=== PATIENT | male | born 1990 | race Caucasian/White ===

== ENCOUNTER 2017-07-16 13:28 | Emergency (ER) | payer OTHER ==
[~2017-07-16] VITALS: Ht 172.7 cm; Wt 75.9 kg
[2017-07-16 13:28] VITALS: BP 156/93
[2017-07-16 16:44] LABS: BASO # 0.1 10^3/uL (0.0-0.2); BASO % 0.8 % (0.0-1.0); EOS # 0.1 10^3/uL (0.0-0.50); EOS % 0.8 % (0.0-3.0); IMMATURE GRANULOCYTE % 0.2 % (0-0); LYMPH # 1.3 10^3/uL (1.5-6.5); MEAN CORPUSCULAR HEMOGLOBIN 32.3 pg (27.0-33.0); MEAN CORPUSCULAR HGB CONC 35.5 g/dl (32.0-36.5); MEAN CORPUSCULAR VOLUME 91.1 fl (80.0-96.0); MONO # 0.6 10^3/uL (0.0-0.8); MONO % 4.2 % (0.0-5.0); NEUTROPHILS # 11.1 10^3/uL (1.8-7.7); PLATELET COUNT, AUTOMATED 219 10^3/uL (150-450); RED CELL DISTRIBUTION WIDTH 13.6 % (11.5-14.5); WHITE BLOOD COUNT 13.2 10^3/uL (4.0-10.0)
[2017-07-16 16:46] LABS: ADD MORPHOLOGY? NO
[2017-07-16 17:16] LABS: METHADONE URINE NEGATIVE (NEGATIVE)
[2017-07-16 17:20] LABS: ALBUMIN 4.7 GM/DL (3.2-5.2); ALBUMIN/GLOBULIN RATIO 1.68 (1.00-1.93); ALKALINE PHOSPHATASE 85 U/L (45-117); ALT/SGPT 38 U/L (12-78); ANION GAP 7 MEQ/L (8-16); AST/SGOT 27 U/L (15-37); BILIRUBIN,DIRECT 0.4 MG/DL (0.0-0.2); BILIRUBIN,TOTAL 1.6 MG/DL (0.2-1.0); BLOOD UREA NITROGEN 14 MG/DL (7-18); CALCIUM LEVEL 9.2 MG/DL (8.5-10.1); CARBON DIOXIDE LEVEL 28 MEQ/L (21-32); CHLORIDE LEVEL 103 MEQ/L (98-107); CREATININE FOR GFR 0.87 MG/DL (0.70-1.30); GLOMERULAR FILTRATION RATE > 60.0 (>60); GLUCOSE, FASTING 81 MG/DL (70-105); POTASSIUM SERUM 4.1 MEQ/L (3.5-5.1); SODIUM LEVEL 138 MEQ/L (136-145); TOTAL PROTEIN 7.5 GM/DL (6.4-8.2)
== END 2017-07-16 17:43 | disposition home or self-care (01) ==
LOC: M ED 13:28
DX: F10.10 Alcohol abuse, uncomplicated (principal)

== ENCOUNTER 2017-10-12 00:44 | Inpatient (IN) | payer OTHER ==
[2017-10-12 01:30] LABS: HEMATOCRIT 47.5 % (42.0-52.0); HEMOGLOBIN 17.3 g/dl (14.0-18.0); MEAN CORPUSCULAR HEMOGLOBIN 31.8 pg (27.0-33.0); MEAN CORPUSCULAR HGB CONC 36.4 g/dl (32.0-36.5); MEAN CORPUSCULAR VOLUME 87.3 fl (80.0-96.0); PLATELET COUNT, AUTOMATED 273 10^3/uL (150-450); RED BLOOD COUNT 5.44 10^6/uL (4.30-6.10); RED CELL DISTRIBUTION WIDTH 12.2 % (11.5-14.5); WHITE BLOOD COUNT 15.3 10^3/uL (4.0-10.0)
[2017-10-12 01:56] LABS: ALBUMIN 4.8 GM/DL (3.2-5.2); ALKALINE PHOSPHATASE 92 U/L (45-117); ALT/SGPT 30 U/L (12-78); AMPHETAMINES LEVEL URINE NEGATIVE (NEGATIVE); ANION GAP 20 MEQ/L (8-16); AST/SGOT 30 U/L (7-37); BARBITURATES URINE NEGATIVE (NEGATIVE); BENZODIAZEPINES URINE NEGATIVE (NEGATIVE); BILIRUBIN,DIRECT 0.4 MG/DL (0.0-0.2); BLOOD UREA NITROGEN 14 MG/DL (7-18); CALCIUM LEVEL 9.4 MG/DL (8.5-10.1); CANNABINOIDS URINE NEGATIVE (NEGATIVE); CARBON DIOXIDE LEVEL 20 MEQ/L (21-32); CHLORIDE LEVEL 104 MEQ/L (98-107); COCAINE METABOLITE URINE NEGATIVE (NEGATIVE); CPK CREATINE PHOSPHOKINASE 68 U/L (39-308); CREATININE FOR GFR 0.86 MG/DL (0.70-1.30); ETHYL ALCOHOL (ETHANOL) 0.342 % (0.000-0.010); GLOMERULAR FILTRATION RATE > 60.0 (>60); GLUCOSE, FASTING 65 MG/DL (70-105); METHADONE URINE NEGATIVE (NEGATIVE); OPIATES URINE NEGATIVE (NEGATIVE); PHENCYCLIDINE URINE NEGATIVE (NEGATIVE); POTASSIUM SERUM 3.8 MEQ/L (3.5-5.1); SALICYLATE LEVEL < 1.7 MG/DL (5.0-30.0); SODIUM LEVEL 144 MEQ/L (136-145)
[2017-10-12 01:57] LABS: ACETAMINOPHEN LEVEL < 2.0 UG/ML (10.0-30.0)
[2017-10-12] MEDS: NICOTINE 21MG/24HR 1 EA TRANSDERMAL TD (02:35)
[2017-10-12] MEDS: LORazepam 2 MG TAB PO (07:30)
[2017-10-12] MEDS: OXAZEPAM 15 MG CAP PO (13:50)
[2017-10-12] MEDS: THIAMINE 100 MG TAB PO (14:55)
[2017-10-12 14:56] LABS: ANION GAP 9 MEQ/L (8-16); BLOOD UREA NITROGEN 16 MG/DL (7-18); CALCIUM LEVEL 8.8 MG/DL (8.5-10.1); CARBON DIOXIDE LEVEL 28 MEQ/L (21-32); CHLORIDE LEVEL 103 MEQ/L (98-107); CREATININE FOR GFR 0.85 MG/DL (0.70-1.30); GLOMERULAR FILTRATION RATE > 60.0 (>60); GLUCOSE, FASTING 91 MG/DL (70-105); POTASSIUM SERUM 4.7 MEQ/L (3.5-5.1); SODIUM LEVEL 140 MEQ/L (136-145)
[2017-10-12] MEDS: PRENATAL VITAMINS CHEWABLE TABLET PO (15:17)
[2017-10-12] MEDS ORDERED: MAALOX 30 ML SUSP *UDC PO (15:30)
[2017-10-12] MEDS ORDERED: MOM 30ML SUSPENSION UDC PO (15:30)
[2017-10-12] MEDS ORDERED: ACETAMINOPHEN TAB 650MG DOSE (2X325MG) PO (15:30)
[2017-10-13] MEDS: traZODone 50 MG TAB PO (02:18)
[2017-10-13] MEDS: SERTRALINE HCL 50 MG TAB PO (09:00)
[2017-10-13] MEDS: PRENATAL VITAMINS CHEWABLE TABLET PO (09:41)
[2017-10-13] MEDS: NICOTINE 21MG/24HR 1 EA TRANSDERMAL TD (13:24)
[2017-10-13] MEDS: FOLIC ACID 1 MG TAB PO (17:29)
[2017-10-14] MEDS: traZODone 50 MG TAB PO ×2 (01:07→20:52)
[2017-10-14 07:49] LABS: BASO # 0.1 10^3/uL (0.0-0.2); BASO % 1.2 % (0.0-1.0); EOS # 0.2 10^3/uL (0.0-0.50); EOS % 3.3 % (0.0-3.0); HEMATOCRIT 41.9 % (42.0-52.0); HEMOGLOBIN 15.2 g/dl (14.0-18.0); IMMATURE GRANULOCYTE % 0.3 % (0-0); LYMPH # 1.8 10^3/uL (1.5-6.5); LYMPH % 27.1 % (24.0-44.0); MEAN CORPUSCULAR HEMOGLOBIN 31.6 pg (27.0-33.0); MEAN CORPUSCULAR HGB CONC 36.3 g/dl (32.0-36.5); MEAN CORPUSCULAR VOLUME 87.1 fl (80.0-96.0); MONO # 0.5 10^3/uL (0.0-0.8); NEUTROPHILS % 61.1 % (36.0-66.0); PLATELET COUNT, AUTOMATED 177 10^3/uL (150-450); RED BLOOD COUNT 4.81 10^6/uL (4.30-6.10); WHITE BLOOD COUNT 6.5 10^3/uL (4.0-10.0)
[2017-10-14] MEDS: NICOTINE 21MG/24HR 1 EA TRANSDERMAL TD (08:54)
[2017-10-14] MEDS: THIAMINE 100 MG TAB PO (08:54)
[2017-10-14] MEDS: MULTIVITAMINS/MINERALS THERAP 1 TAB PO (08:54)
[2017-10-14] MEDS: FOLIC ACID 1 MG TAB PO (08:54)
[2017-10-14] MEDS: SERTRALINE HCL 50 MG TAB PO (08:55)
[2017-10-14] MEDS ORDERED: SERTRALINE HCL 25 MG TABLET PO (09:00)
[2017-10-14] MEDS: LORazepam 2 MG TAB PO (13:28)
[2017-10-15] MEDS: hydrOXYzine 50 MG TAB PO (08:22)
[2017-10-15] MEDS: SERTRALINE HCL 50 MG TAB PO (08:23)
[2017-10-15] MEDS: THIAMINE 100 MG TAB PO (08:23)
[2017-10-15] MEDS: NICOTINE 21MG/24HR 1 EA TRANSDERMAL TD (08:23)
[2017-10-15] MEDS: FOLIC ACID 1 MG TAB PO (08:23)
[2017-10-15] MEDS: MULTIVITAMINS/MINERALS THERAP 1 TAB PO (08:23)
[2017-10-15] MEDS: LORazepam 1 MG TAB PO ×2 (11:29→17:11)
[2017-10-15] MEDS: NALTREXONE 50 MG TAB PO (11:29)
[2017-10-15] MEDS: traZODone 50 MG TAB PO (20:35)
[2017-10-16] MEDS: LORazepam 1 MG TAB PO ×2 (05:24)
[2017-10-16] MEDS: NALTREXONE 50 MG TAB PO (08:11)
[2017-10-16] MEDS: FOLIC ACID 1 MG TAB PO (08:11)
[2017-10-16] MEDS: NICOTINE 21MG/24HR 1 EA TRANSDERMAL TD (08:11)
[2017-10-16] MEDS: MULTIVITAMINS/MINERALS THERAP 1 TAB PO (08:11)
[2017-10-16] MEDS: THIAMINE 100 MG TAB PO (08:11)
[2017-10-16] MEDS: SERTRALINE HCL 50 MG TAB PO (08:11)
[2017-10-16] MEDS: traZODone 50 MG TAB PO (20:59)
[2017-10-17] MEDS: THIAMINE 100 MG TAB PO (08:13)
[2017-10-17] MEDS: MULTIVITAMINS/MINERALS THERAP 1 TAB PO (08:13)
[2017-10-17] MEDS: FOLIC ACID 1 MG TAB PO (08:13)
[2017-10-17] MEDS: NALTREXONE 50 MG TAB PO (08:13)
[2017-10-17] MEDS: NICOTINE 21MG/24HR 1 EA TRANSDERMAL TD (08:13)
[2017-10-17] MEDS: SERTRALINE HCL 50 MG TAB PO (08:13)
[2017-10-17] MEDS: traZODone 50 MG TAB PO (21:02)
[2017-10-18] MEDS: NALTREXONE 50 MG TAB PO (08:58)
[2017-10-18] MEDS: MULTIVITAMINS/MINERALS THERAP 1 TAB PO (08:58)
[2017-10-18] MEDS: SERTRALINE HCL 50 MG TAB PO (08:58)
[2017-10-18] MEDS: FOLIC ACID 1 MG TAB PO (08:58)
[2017-10-18] MEDS: NICOTINE 21MG/24HR 1 EA TRANSDERMAL TD (08:58)
[2017-10-18] MEDS: THIAMINE 100 MG TAB PO (08:58)
[2017-10-18] MEDS: traZODone 50 MG TAB PO (21:37)
[2017-10-19] MEDS: NICOTINE 21MG/24HR 1 EA TRANSDERMAL TD (09:14)
[2017-10-19] MEDS: NALTREXONE 50 MG TAB PO (09:14)
[2017-10-19] MEDS: MULTIVITAMINS/MINERALS THERAP 1 TAB PO (09:14)
[2017-10-19] MEDS: THIAMINE 100 MG TAB PO (09:14)
[2017-10-19] MEDS: SERTRALINE HCL 50 MG TAB PO (09:14)
[2017-10-19] MEDS: FOLIC ACID 1 MG TAB PO (09:14)
[2017-10-19] MEDS: traZODone 50 MG TAB PO (22:00)
[2017-10-20] MEDS: MULTIVITAMINS/MINERALS THERAP 1 TAB PO (08:48)
[2017-10-20] MEDS: NALTREXONE 50 MG TAB PO (08:48)
[2017-10-20] MEDS: SERTRALINE HCL 50 MG TAB PO (08:48)
[2017-10-20] MEDS: NICOTINE 21MG/24HR 1 EA TRANSDERMAL TD (08:48)
[2017-10-20] MEDS: THIAMINE 100 MG TAB PO (08:48)
[2017-10-20] MEDS: FOLIC ACID 1 MG TAB PO (08:48)
[2017-10-20] MEDS: traZODone 50 MG TAB PO (21:48)
[2017-10-21] MEDS: MULTIVITAMINS/MINERALS THERAP 1 TAB PO (08:44)
[2017-10-21] MEDS: THIAMINE 100 MG TAB PO (08:44)
[2017-10-21] MEDS: NALTREXONE 50 MG TAB PO (08:44)
[2017-10-21] MEDS: FOLIC ACID 1 MG TAB PO (08:44)
[2017-10-21] MEDS: SERTRALINE HCL 25 MG TABLET PO (08:45)
[2017-10-21] MEDS: NICOTINE 21MG/24HR 1 EA TRANSDERMAL TD (08:45)
[2017-10-21 12:47] LABS: BASO # 0.1 10^3/uL (0.0-0.2); BASO % 1.3 % (0.0-1.0); EOS # 0.1 10^3/uL (0.0-0.50); EOS % 1.1 % (0.0-3.0); HEMATOCRIT 43.5 % (42.0-52.0); HEMOGLOBIN 15.7 g/dl (14.0-18.0); IMMATURE GRANULOCYTE % 0.4 % (0-0); LYMPH # 1.3 10^3/uL (1.5-6.5); LYMPH % 25.2 % (24.0-44.0); MEAN CORPUSCULAR HEMOGLOBIN 31.9 pg (27.0-33.0); MEAN CORPUSCULAR HGB CONC 36.1 g/dl (32.0-36.5); MEAN CORPUSCULAR VOLUME 88.4 fl (80.0-96.0); MONO # 0.5 10^3/uL (0.0-0.8); MONO % 9.7 % (0.0-5.0); NEUTROPHILS # 3.3 10^3/uL (1.8-7.7); NEUTROPHILS % 62.3 % (36.0-66.0); PLATELET COUNT, AUTOMATED 209 10^3/uL (150-450); RED BLOOD COUNT 4.92 10^6/uL (4.30-6.10); RED CELL DISTRIBUTION WIDTH 13.2 % (11.5-14.5); WHITE BLOOD COUNT 5.3 10^3/uL (4.0-10.0)
[2017-10-21 13:06] LABS: ALBUMIN 4.8 GM/DL (3.2-5.2); ALBUMIN/GLOBULIN RATIO 2.09 (1.00-1.93); ALKALINE PHOSPHATASE 62 U/L (45-117); ALT/SGPT 46 U/L (12-78); ANION GAP 7 MEQ/L (8-16); AST/SGOT 17 U/L (7-37); BLOOD UREA NITROGEN 17 MG/DL (7-18); CARBON DIOXIDE LEVEL 27 MEQ/L (21-32); CHLORIDE LEVEL 103 MEQ/L (98-107); CREATININE FOR GFR 0.97 MG/DL (0.70-1.30); GLOMERULAR FILTRATION RATE > 60.0 (>60); GLUCOSE, FASTING 105 MG/DL (70-105); POTASSIUM SERUM 4.2 MEQ/L (3.5-5.1); SODIUM LEVEL 137 MEQ/L (136-145); TOTAL PROTEIN 7.1 GM/DL (6.4-8.2)
[2017-10-21] MEDS: traZODone 50 MG TAB PO (21:30)
[2017-10-22] MEDS: NALTREXONE 50 MG TAB PO (08:28)
[2017-10-22] MEDS: NICOTINE 21MG/24HR 1 EA TRANSDERMAL TD (08:28)
[2017-10-22] MEDS: THIAMINE 100 MG TAB PO (08:28)
[2017-10-22] MEDS: MULTIVITAMINS/MINERALS THERAP 1 TAB PO (08:28)
[2017-10-22] MEDS: FOLIC ACID 1 MG TAB PO (08:28)
[2017-10-22] MEDS: SERTRALINE HCL 25 MG TABLET PO (08:28)
[2017-10-22] MEDS: GABAPENTIN 100 MG CAP PO (21:09)
[2017-10-23] MEDS: THIAMINE 100 MG TAB PO (08:36)
[2017-10-23] MEDS: FOLIC ACID 1 MG TAB PO (08:36)
[2017-10-23] MEDS: NICOTINE 21MG/24HR 1 EA TRANSDERMAL TD (08:36)
[2017-10-23] MEDS: NALTREXONE 50 MG TAB PO (08:36)
[2017-10-23] MEDS: SERTRALINE HCL 25 MG TABLET PO (08:36)
[2017-10-23] MEDS: MULTIVITAMINS/MINERALS THERAP 1 TAB PO (08:36)
== END 2017-10-23 12:20 | DRG 880 ==
LOC: M PSY 10-22 08:41 → M ED 00:44 → M ED INP 15:30 → M PSY 16:29
DX: F41.1 Generalized anxiety disorder (principal); F10.24 Alcohol dependence with alcohol-induced mood disorder; F17.290 Nicotine dependence, other tobacco product, uncomplicated; Z79.899 Other long term (current) drug therapy; Z91.19 Patient's noncompliance with other medical treatment and regimen

== ENCOUNTER 2019-04-20 11:05 | Emergency (ER) | payer OTHER ==
[~2019-04-20] VITALS: Ht 172.7 cm; Wt 68.2 kg
[~2019-04-20 11:05] MED LIST: FOLI1TAB11 PO; FOLIC ACID 1 MG TAB PO SCH; GABA-1171 PO; HYDRO50TAB PO; MULTIVITAMINS/MINERALS THERAP 1 TAB PO SCH; NALT50TA4; NALT50TA4 PO; NICO21PAT TD; SERT25TA85 PO; THIA100TA PO; THIAMINE 100 MG TAB PO SCH; TRAZ1TAB10 PO; VITMTA PO
[2019-04-20] MEDS ORDERED: LORazepam 2 MG TAB PO PRN (12:00)
[2019-04-20] MEDS ORDERED: OXAZEPAM 15 MG CAP PO ONE (12:15)
[2019-04-20 12:44] LABS: BASO # 0.1 10^3/uL (0.0-0.2); BASO % 1.4 % (0.0-1.0); EOS % 0.6 % (0.0-3.0); HEMOGLOBIN 16.7 g/dl (13.5-17.5); LYMPH % 16.4 % (24.0-44.0); MEAN CORPUSCULAR HEMOGLOBIN 33.3 pg (27.0-33.0); MEAN CORPUSCULAR HGB CONC 36.3 g/dl (32.0-36.5); MEAN CORPUSCULAR VOLUME 91.6 fl (80.0-96.0); MONO # 0.6 10^3/uL (0.0-0.8); MONO % 9.1 % (0.0-5.0); NEUTROPHILS # 4.6 10^3/uL (1.8-7.7); NEUTROPHILS % 72.2 % (36.0-66.0); PLATELET COUNT, AUTOMATED 215 10^3/uL (150-450); RED BLOOD COUNT 5.02 10^6/uL (4.30-6.10); WHITE BLOOD COUNT 6.3 10^3/uL (4.0-10.0)
[2019-04-20 13:30] LABS: ALBUMIN 4.7 GM/DL (3.2-5.2); ALT/SGPT 28 U/L (12-78); BILIRUBIN,DIRECT 0.5 MG/DL (0.0-0.2); BLOOD UREA NITROGEN 15 MG/DL (7-18); CALCIUM LEVEL 9.3 MG/DL (8.5-10.1); CARBON DIOXIDE LEVEL 27 MEQ/L (21-32); CHLORIDE LEVEL 102 MEQ/L (98-107); CREATININE FOR GFR 0.88 MG/DL (0.70-1.30); GLOMERULAR FILTRATION RATE > 60.0 (>60); GLUCOSE, FASTING 89 MG/DL (70-100); POTASSIUM SERUM 4.3 MEQ/L (3.5-5.1); SODIUM LEVEL 139 MEQ/L (136-145); TOTAL PROTEIN 7.8 GM/DL (6.4-8.2)
[2019-04-20] MEDS ORDERED: OXAZ30CA2 PO (14:13)
[2019-04-20 14:33] VITALS: BP 158/86
== END 2019-04-20 14:30 | disposition home or self-care (01) ==
LOC: M ED 11:05
DX: F10.239 Alcohol dependence with withdrawal, unspecified (principal)

== ENCOUNTER → 2020-01-26 | Outpatient (CLI) | payer OTHER ==
[~2020-01-26] MED LIST changes: -FOLIC ACID 1 MG TAB PO SCH; +HYDR1TAB33 PO; -HYDRO50TAB PO; -MULTIVITAMINS/MINERALS THERAP 1 TAB PO SCH; +OXAZ30CA2 PO; -THIAMINE 100 MG TAB PO SCH
== END ==
LOC: M SLEEP 20:00
PROVIDERS: ATTEND Nurse Practitioner Family
DX: R40.0 Somnolence (principal)